=== PATIENT | male | born 1990 | race Two or more races ===

== ENCOUNTER 2021-06-01 03:42 | Inpatient (IN) | payer MEDICAID ==
[~2021-06-01] VITALS: Ht 175.3 cm; Wt 77.1 kg
[2021-06-01 04:42] LABS: Hematocrit 40.9 % (41.0-53.0); Hemoglobin 13.7 g/dL (13.5-17.5); Mean Corpuscular Hemoglobin 30.6 pg (28.0-32.0); Mean Corpuscular Hgb Conc. 33.6 g/dL (32.0-36.0); Red Cell Distribution Width 13.2 % (11.8-14.3); White Blood Cell 7.7 10^3/uL (4.4-10.8)
[2021-06-01 04:47] LABS: Basophils % (manual) 0 (0.0-2.0); Blast Cells 0; Metamyelocytes % 0; Myelocytes % 0; Promyelocytes % 0
[2021-06-01 04:54] LABS: Albumin 3.4 g/dL (3.4-5.0); Calcium 8.3 mg/dL (8.5-10.1); Potassium 3.8 mmol/L (3.5-5.1)
[2021-06-01 04:59] LABS: BUN/Creatinine Ratio 6.7; Bilirubin, Total 0.3 mg/dL (0.2-1.0); Total Protein 7.2 g/dL (6.4-8.2)
[2021-06-01 05:03] LABS: INR 1.04 (0.9-1.15); Partial Thromboplastin Time 28.2 sec (23.6-33.0)
[2021-06-01 05:40] LABS: Band Neutrophils % (manual) 3; Eosinophils % (manual) 29 (0-7); Lymphocytes % (manual) 8 (10.0-50.0); Monocytes % (manual) 8 (0-12); Reactive Lymphocytes 2
[2021-06-01 05:43] LABS: Urine Bacteria NONE SEEN /hpf (None Seen); Urine Blood Negative /uL (Negative); Urine Specific Gravity 1.018 (1.001-1.035); Urine WBC 2 /hpf (0 - 3)
[2021-06-01] MEDS ORDERED: ASPirin 325 MG TAB PO ONE (06:00)
[2021-06-01] MEDS ORDERED: DEXTROSE (50%) 50ML SYRG IV ONE ×2 (07:00→15:30)
[2021-06-01] MEDS ORDERED: ACETAMINOPHEN 325 MG TAB PO PRN (10:00)
[2021-06-01] MEDS ORDERED: D5W/SOD CHLO 0.9% 1,000 ML IV ONE (10:00)
[2021-06-01] MEDS ORDERED: NITROGLYCERIN 0.4 MG SL TAB SL PRN (10:00)
[2021-06-01] MEDS ORDERED: ONDANSETRON HCL 4 MG/2 ML VIAL IV PRN (10:00)
[2021-06-01] MEDS ORDERED: MORPHINE SULFATE INJECTION 2 MG/ML SYRG IV PRN (10:00)
[2021-06-01] MEDS ORDERED: DEXTROSE 50% SYRINGE 50 ML IV ONE (15:24)
[2021-06-01] MEDS: ACCU-CHEK COMFORT CURVE STRIP VI SCH (21:00)
[2021-06-01] MEDS ORDERED: DEXTROSE (50%) 50ML SYRG IV PRN (21:30)
[2021-06-01 22:00] VITALS: BP 134/76
[2021-06-01] MEDS: D5W 5% 1,000 ML IV SCH (22:00)
[2021-06-01] MEDS: ATORVASTATIN 20 MG TAB PO SCH (23:10)
[2021-06-02] MEDS: ACCU-CHEK COMFORT CURVE STRIP VI SCH ×6 (03:40→20:00)
[2021-06-02 05:00] VITALS: BP 118/70
[2021-06-02 09:00] VITALS: BP 100/54
[2021-06-02] MEDS: D5W 5% 1,000 ML IV SCH (10:50)
[2021-06-02] MEDS ORDERED: IOHEXOL 350 MG/ML 100ML IJ ONE (11:21)
[2021-06-02 11:33] LABS: BUN/Creatinine Ratio 8.1; Calcium 8.5 mg/dL (8.5-10.1)
[2021-06-02] MEDS: ASPirin 81 mg TAB PO SCH (12:50)
[2021-06-02 13:00] VITALS: BP 121/76
[2021-06-02] MEDS ORDERED: HEPARIN SODIUM (PORCINE) 5000 UNITS/ML 1ML VIAL IV ONE (14:15)
[2021-06-02 15:37] LABS: Hematocrit 44.7 % (41.0-53.0); Hemoglobin 14.6 g/dL (13.5-17.5); Mean Corpuscular Hemoglobin 29.7 pg (28.0-32.0); Mean Corpuscular Hgb Conc. 32.5 g/dL (32.0-36.0); Mean Corpuscular Volume 91.3 fL (80.0-100.0); Red Cell Distribution Width 13.6 % (11.8-14.3); White Blood Cell 9.5 10^3/uL (4.4-10.8)
[2021-06-02 15:48] LABS: Basophils % (manual) 0 (0.0-2.0); Blast Cells 0; Metamyelocytes % 0; Myelocytes % 0; Promyelocytes % 0; Reactive Lymphocytes 0
[2021-06-02 16:21] LABS: Band Neutrophils % (manual) 1; Eosinophils % (manual) 24 (0-7); Lymphocytes % (manual) 6 (10.0-50.0); Monocytes % (manual) 6 (0-12)
[2021-06-02 16:36] VITALS: BP 113/51
[2021-06-02] MEDS: HEPARIN DRIP/D5W 100UNITS/ML 250 ML IV SCH (17:47)
[2021-06-02 22:00] VITALS: BP 110/77
[2021-06-02] MEDS: ATORVASTATIN 20 MG TAB PO SCH (23:00)
[2021-06-03] MEDS: D5W 5% 1,000 ML IV SCH (00:10)
[2021-06-03] MEDS: ACCU-CHEK COMFORT CURVE STRIP VI SCH ×4 (01:00→12:00)
[2021-06-03 01:45] LABS: INR 1.09 (0.9-1.15); Partial Thromboplastin Time 69.4 sec (23.6-33.0)
[2021-06-03 05:00] VITALS: BP 123/62
[2021-06-03 08:11] LABS: Hematocrit 44.7 % (41.0-53.0); Hemoglobin 14.5 g/dL (13.5-17.5); Mean Corpuscular Hemoglobin 29.6 pg (28.0-32.0); Mean Corpuscular Hgb Conc. 32.4 g/dL (32.0-36.0); Mean Corpuscular Volume 91.3 fL (80.0-100.0); Red Cell Distribution Width 13.3 % (11.8-14.3); White Blood Cell 10.2 10^3/uL (4.4-10.8)
[2021-06-03 08:16] LABS: Band Neutrophils % (manual) 0; Basophils % (manual) 0 (0.0-2.0); Blast Cells 0; Metamyelocytes % 0; Myelocytes % 0; Promyelocytes % 0; Reactive Lymphocytes 0
[2021-06-03 08:23] LABS: Calcium 8.5 mg/dL (8.5-10.1)
[2021-06-03 08:27] LABS: BUN/Creatinine Ratio 10.1; Magnesium 2.1 mg/dL (1.6-2.6)
[2021-06-03 09:00] VITALS: BP 117/64
[2021-06-03 09:27] LABS: Eosinophils % (manual) 22 (0-7); Lymphocytes % (manual) 9 (10.0-50.0); Monocytes % (manual) 3 (0-12)
[2021-06-03] MEDS: HEPARIN DRIP/D5W 100UNITS/ML 250 ML IV SCH ×4 (09:37→19:58)
[2021-06-03] MEDS: ASPirin 81 mg TAB PO SCH (10:00)
[2021-06-03 12:25] LABS: INR 1.07 (0.9-1.15)
[2021-06-03 12:28] LABS: Partial Thromboplastin Time 71.7 sec (23.6-33.0)
[2021-06-03 13:00] VITALS: BP 112/72
[2021-06-03 17:00] VITALS: BP 105/68
[2021-06-03 18:40] LABS: INR 1.05 (0.9-1.15)
[2021-06-03 18:49] LABS: Partial Thromboplastin Time 81.1 sec (23.6-33.0)
[2021-06-03 22:00] VITALS: BP 107/66
[2021-06-03] MEDS: ATORVASTATIN 20 MG TAB PO SCH (22:00)
[2021-06-04 01:36] LABS: INR 1.07 (0.9-1.15); Partial Thromboplastin Time 65.7 sec (23.6-33.0)
[2021-06-04 05:00] VITALS: BP 108/69
[2021-06-04 07:41] LABS: INR 1.05 (0.9-1.15); Partial Thromboplastin Time 68.4 sec (23.6-33.0)
[2021-06-04 07:46] LABS: Cholesterol 116 mg/dL (< 200); HDL Cholesterol 45 mg/dL (40-59); LDL Cholesterol 60 mg/dL (< 100); Triglycerides 75 mg/dL (< 150)
[2021-06-04] MEDS: HEPARIN DRIP/D5W 100UNITS/ML 250 ML IV SCH (08:50)
[2021-06-04] MEDS: ASPirin 81 mg TAB PO SCH (08:50)
[2021-06-04 09:00] VITALS: BP 115/64
[2021-06-04 09:10] LABS: Hematocrit 45.1 % (41.0-53.0); Mean Corpuscular Hemoglobin 30.4 pg (28.0-32.0); Mean Corpuscular Hgb Conc. 33.2 g/dL (32.0-36.0); Mean Corpuscular Volume 91.4 fL (80.0-100.0); Red Blood Cells 4.93 10^6/uL (4.5-5.90); Red Cell Distribution Width 13.6 % (11.8-14.3); White Blood Cell 8.5 10^3/uL (4.4-10.8)
[2021-06-04 09:22] LABS: Basophils % (manual) 0 (0.0-2.0); Blast Cells 0; Metamyelocytes % 0; Myelocytes % 0; Promyelocytes % 0; Reactive Lymphocytes 0
[2021-06-04 10:14] LABS: Band Neutrophils % (manual) 1; Eosinophils % (manual) 18 (0-7); Lymphocytes % (manual) 6 (10.0-50.0); Monocytes % (manual) 17 (0-12)
[2021-06-04 13:00] VITALS: BP 115/72
[2021-06-04 17:00] VITALS: BP 115/72
[2021-06-04 21:19] LABS: INR 1.05 (0.9-1.15); Partial Thromboplastin Time 45.5 sec (23.6-33.0)
[2021-06-04] MEDS: ATORVASTATIN 20 MG TAB PO SCH (22:03)
[2021-06-04 22:22] VITALS: BP 111/81
[2021-06-05 02:57] LABS: INR 1.05 (0.9-1.15); Partial Thromboplastin Time 32.2 sec (23.6-33.0)
[2021-06-05] MEDS ORDERED: HEPARIN SODIUM (PORCINE) 5000 UNITS/ML 1ML VIAL IV ONE (03:30)
[2021-06-05 05:10] LABS: Hematocrit 47.6 % (41.0-53.0); Hemoglobin 15.3 g/dL (13.5-17.5); Mean Corpuscular Hemoglobin 29.9 pg (28.0-32.0); Mean Corpuscular Hgb Conc. 32.2 g/dL (32.0-36.0); Mean Corpuscular Volume 92.8 fL (80.0-100.0); Red Blood Cells 5.13 10^6/uL (4.5-5.90); Red Cell Distribution Width 13.7 % (11.8-14.3); White Blood Cell 6.1 10^3/uL (4.4-10.8)
[2021-06-05 05:18] LABS: Basophils % (manual) 0 (0.0-2.0); Blast Cells 0; Metamyelocytes % 0; Myelocytes % 0; Promyelocytes % 0; Reactive Lymphocytes 0
[2021-06-05 05:40] LABS: INR 1.14 (0.9-1.15)
[2021-06-05 05:47] LABS: Partial Thromboplastin Time > 139.0 sec (23.6-33.0)
[2021-06-05 05:55] VITALS: BP 116/76
[2021-06-05 07:07] LABS: Band Neutrophils % (manual) 6; Eosinophils % (manual) 25 (0-7); Lymphocytes % (manual) 11 (10.0-50.0); Monocytes % (manual) 8 (0-12)
[2021-06-05] MEDS: MORPHINE SULFATE INJECTION 2 MG/ML SYRG IV PRN ×2 (09:00→17:24)
[2021-06-05] MEDS: ASPirin 81 mg TAB PO SCH (09:58)
[2021-06-05] MEDS: HEPARIN DRIP/D5W 100UNITS/ML 250 ML IV SCH (11:23)
[2021-06-05 13:00] VITALS: BP 118/73
[2021-06-05 13:24] LABS: INR 1.11 (0.9-1.15); Partial Thromboplastin Time 50.7 sec (23.6-33.0)
[2021-06-05 17:00] VITALS: BP 118/88
[2021-06-05 20:13] LABS: INR 1.1 (0.9-1.15); Partial Thromboplastin Time 67.5 sec (23.6-33.0)
[2021-06-05 22:30] VITALS: BP 111/74
[2021-06-06 01:44] LABS: INR 1.1 (0.9-1.15)
[2021-06-06 02:31] LABS: Hematocrit 44.2 % (41.0-53.0); Hemoglobin 15.1 g/dL (13.5-17.5); Mean Corpuscular Hemoglobin 30.9 pg (28.0-32.0); Mean Corpuscular Hgb Conc. 34.1 g/dL (32.0-36.0); Mean Corpuscular Volume 90.6 fL (80.0-100.0); Red Blood Cells 4.88 10^6/uL (4.5-5.90); Red Cell Distribution Width 13.4 % (11.8-14.3); White Blood Cell 7.4 10^3/uL (4.4-10.8)
[2021-06-06 02:41] LABS: Basophils % (manual) 0 (0.0-2.0); Blast Cells 0; Metamyelocytes % 0; Myelocytes % 0; Promyelocytes % 0; Reactive Lymphocytes 0
[2021-06-06 04:19] LABS: Band Neutrophils % (manual) 1; Eosinophils % (manual) 33 (0-7); Lymphocytes % (manual) 14 (10.0-50.0); Monocytes % (manual) 7 (0-12)
[2021-06-06 05:33] VITALS: BP 112/74
[2021-06-06] MEDS: HEPARIN DRIP/D5W 100UNITS/ML 250 ML IV SCH (09:45)
[2021-06-06] MEDS: ASPirin 81 mg TAB PO SCH (09:55)
== END 2021-06-06 10:20 | disposition home health service (06) | DRG 45 ==
LOC: ER 03:42 → TELE 09:52 → TELE-WESTW 19:20
PROVIDERS: ADMIT Internal Medicine; ATTEND Internal Medicine
DX: I63.49 Cerebral infarction due to embolism of other cerebral artery (principal); D68.59 Other primary thrombophilia; I82.C12 Acute embolism and thrombosis of left internal jugular vein; G81.91 Hemiplegia, unspecified affecting right dominant side; R29.810 Facial weakness; E16.2 Hypoglycemia, unspecified; F84.0 Autistic disorder; L30.9 Dermatitis, unspecified; W18.39XA Other fall on same level, initial encounter; Z20.822 Contact with and (suspected) exposure to COVID-19; Z79.01 Long term (current) use of anticoagulants; Z82.3 Family history of stroke; Z83.3 Family history of diabetes mellitus; Z82.49 Family history of ischemic heart disease and other diseases of the circulatory system; Y93.89 Activity, other specified; Y92.89 Other specified places as the place of occurrence of the external cause; Y99.8 Other external cause status; Z53.20 Procedure and treatment not carried out because of patient's decision for unspecified reasons
CPT/HCPCS: 36415; 70450; 70460; 70491; 70551; 71045; 72125; 73020; 80048; 80053; 80061; 81001; 81241; 82962; 83036; 83605; 83735; 85007; 85027; 85302; 85305; 85306; 85610; 85613; 85670; 85705; 85730; 85732; 86850; 86900; 86901; 87426; 92610; 93306; 93886; 96361; 96374; 96376; 97116; 97163; G0378

== ENCOUNTER 2021-07-28 18:31 | Emergency (ER) | payer MEDICAID ==
[~2021-07-28] VITALS: Ht 175.3 cm; Wt 68.0 kg
[2021-07-28 19:47] LABS: Hematocrit 41.7 % (41.0-53.0); Hemoglobin 13.7 g/dL (13.5-17.5); Mean Corpuscular Hemoglobin 30.1 pg (28.0-32.0); Mean Corpuscular Hgb Conc. 32.8 g/dL (32.0-36.0); Mean Corpuscular Volume 91.8 fL (80.0-100.0); Red Blood Cells 4.54 10^6/uL (4.5-5.90); Red Cell Distribution Width 13.3 % (11.8-14.3); White Blood Cell 7.9 10^3/uL (4.4-10.8)
[2021-07-28 19:52] LABS: Band Neutrophils % (manual) 0; Blast Cells 0; Metamyelocytes % 0; Myelocytes % 0; Promyelocytes % 0; Reactive Lymphocytes 0
[2021-07-28 20:19] LABS: Albumin 3.3 g/dL (3.4-5.0); Calcium 8.3 mg/dL (8.5-10.1); Magnesium 2.2 mg/dL (1.6-2.6); Potassium 4.2 mmol/L (3.5-5.1)
[2021-07-28 20:21] LABS: BUN/Creatinine Ratio 8.2
[2021-07-28 20:24] LABS: Bilirubin, Total 0.4 mg/dL (0.2-1.0); Total Protein 7.2 g/dL (6.4-8.2)
[2021-07-28 21:03] LABS: Basophils % (manual) 0 (0.0-2.0); Eosinophils % (manual) 23 (0-7); Lymphocytes % (manual) 5 (10.0-50.0); Monocytes % (manual) 4 (0-12)
[2021-07-29 01:54] LABS: Urine Bacteria FEW /hpf (None Seen); Urine Blood Negative /uL (Negative); Urine Mucus FEW (None Seen); Urine Specific Gravity 1.038 (1.001-1.035); Urine WBC 12 /hpf (0 - 3)
[2021-07-29 02:06] LABS: Alcohol, Urine < 3.0 mg/dL (0-10); Amphetamine Screen, Urine NEGATIVE (NEGATIVE); Barbiturate Scree,Urine NEGATIVE (NEGATIVE); Benzodiazephine Screen, Urine NEGATIVE (NEGATIVE); Cannabinoid Screen, Urine NEGATIVE (NEGATIVE); Cocaine Screen, Urine NEGATIVE (NEGATIVE); Opiate Scree,Urine NEGATIVE (NEGATIVE); Phencyclidine Screen, Urine NEGATIVE (NEGATIVE)
[2021-07-29 04:50] VITALS: BP 115/79
== END 2021-07-29 04:51 | disposition home or self-care (01) ==
LOC: ER 18:32
DX: R20.2 Paresthesia of skin (principal); R53.1 Weakness; Z86.73 Personal history of transient ischemic attack (TIA), and cerebral infarction without residual deficits
CPT/HCPCS: 36415; 70450; 80053; 80307; 81001; 83735; 85007; 85027

== ENCOUNTER 2021-09-30 14:08 | Emergency (ER) | payer MEDICAID ==
[~2021-09-30] VITALS: Ht 172.7 cm; Wt 72.6 kg
[2021-09-30 18:59] VITALS: BP 118/73
[2021-09-30] MEDS ORDERED: PRED20TA2 PO ×6 (19:01→19:18)
== END 2021-09-30 19:49 | disposition home or self-care (01) ==
LOC: ER 14:08
DX: L30.9 Dermatitis, unspecified (principal); L20.9 Atopic dermatitis, unspecified; Z86.73 Personal history of transient ischemic attack (TIA), and cerebral infarction without residual deficits; Z79.899 Other long term (current) drug therapy

== ENCOUNTER 2021-10-19 16:14 | Emergency (ER) | payer MEDICAID ==
[~2021-10-19] VITALS: Ht 172.7 cm; Wt 68.9 kg
[~2021-10-19 16:14] MED LIST: PRED20TA2 PO
[2021-10-19 17:15] VITALS: BP 119/92
== END 2021-10-19 18:01 | disposition home or self-care (01) ==
LOC: ER 16:18
DX: L30.9 Dermatitis, unspecified (principal); Z86.73 Personal history of transient ischemic attack (TIA), and cerebral infarction without residual deficits; Z79.899 Other long term (current) drug therapy

== ENCOUNTER 2021-11-01 13:11 | Emergency (ER) | payer MEDICAID ==
[~2021-11-01] VITALS: Ht 172.7 cm; Wt 68.0 kg
[2021-11-01 13:27] VITALS: BP 143/82
[2021-11-01] MEDS ORDERED: CEPH500C PO (13:45)
[2021-11-01] MEDS ORDERED: PRED20TA2 PO (13:45)
== END 2021-11-01 14:20 | disposition home or self-care (01) ==
LOC: ER 13:11
DX: L30.9 Dermatitis, unspecified (principal); Z86.73 Personal history of transient ischemic attack (TIA), and cerebral infarction without residual deficits

== ENCOUNTER 2021-11-02 17:43 | Emergency (ER) | payer MEDICAID ==
[~2021-11-02] VITALS: Ht 172.7 cm; Wt 68.0 kg
[~2021-11-02 17:43] MED LIST changes: +CEPH500C PO
[2021-11-02 19:43] VITALS: BP 128/91
[2021-11-02] MEDS ORDERED: methylPREDNISolone SOD SUCC 125 MG/2 ML VL IV ONE (20:15)
[2021-11-02] MEDS ORDERED: KETOROLAC TROMETH 30 MG/ML 1ML VIAL IV ONE (20:15)
== END 2021-11-02 21:37 | disposition home or self-care (01) ==
LOC: ER 17:43
DX: L30.9 Dermatitis, unspecified (principal); Z86.73 Personal history of transient ischemic attack (TIA), and cerebral infarction without residual deficits
CPT/HCPCS: 96374; 99283; J1885; J2930

== ENCOUNTER 2021-11-12 17:36 | Emergency (ER) | payer MEDICAID ==
[~2021-11-12] VITALS: Ht 172.7 cm; Wt 66.7 kg
[2021-11-12] MEDS ORDERED: methylPREDNISolone SOD SUCC 125 MG/2 ML VL IV ONE (20:30)
[2021-11-12] MEDS ORDERED: SODIUM CHLORIDE 0.9% 1,000 ML IV ONE (20:30)
[2021-11-12 22:32] LABS: Basophils # (auto) 0 10 ^3/uL (0-0.2); Basophils % (auto) 0.5 % (0.0-2.0); Eosinophils # (auto) 0.9 10 ^3/uL (0-0.8); Eosinophils % (auto) 9.5 % (0.0-7.0); Hematocrit 47.3 % (41.0-53.0); Hemoglobin 15.7 g/dL (13.5-17.5); Lymphocytes # (auto) 0.8 10 ^3/uL (0.4-5.4); Lymphocytes % (auto) 7.8 % (10.0-50.0); Mean Corpuscular Hemoglobin 30.3 pg (28.0-32.0); Mean Corpuscular Hgb Conc. 33.3 g/dL (32.0-36.0); Mean Corpuscular Volume 90.9 fL (80.0-100.0); Monocytes # (auto) 0.9 10 ^3/uL (0-1.3); Neutrophils # (auto) 7.3 10 ^3/uL (1.6-8.6); Neutrophils % (auto) 73.2 % (37.0-80.0); Red Cell Distribution Width 13.9 % (11.8-14.3); White Blood Cell 9.9 10^3/uL (4.4-10.8)
[2021-11-12 22:47] LABS: Albumin 3.2 g/dL (3.4-5.0); BUN/Creatinine Ratio 11.3; Calcium 8.6 mg/dL (8.5-10.1); Magnesium 2.2 mg/dL (1.6-2.6); Potassium 3.8 mmol/L (3.5-5.1)
[2021-11-12 22:50] LABS: Bilirubin, Total 0.3 mg/dL (0.2-1.0); Total Protein 6.6 g/dL (6.4-8.2)
[2021-11-13] MEDS ORDERED: PRED20TA2 PO (00:50)
[2021-11-13 01:37] VITALS: BP 119/76
== END 2021-11-13 01:40 | disposition home or self-care (01) ==
LOC: ER 17:36
DX: L20.9 Atopic dermatitis, unspecified (principal); Z86.73 Personal history of transient ischemic attack (TIA), and cerebral infarction without residual deficits
CPT/HCPCS: 36415; 80053; 83735; 85025; 93005; 96361; 96374; 99284; J2930; J7030

== ENCOUNTER 2021-11-30 15:29 | Emergency (ER) | payer MEDICAID ==
[~2021-11-30] VITALS: Ht 172.7 cm; Wt 68.0 kg
[2021-11-30 16:20] VITALS: BP 130/80
== END 2021-11-30 16:51 | disposition home or self-care (01) ==
LOC: ER 15:29
DX: L30.9 Dermatitis, unspecified (principal); Z76.0 Encounter for issue of repeat prescription; Z86.73 Personal history of transient ischemic attack (TIA), and cerebral infarction without residual deficits; Z79.899 Other long term (current) drug therapy

== ENCOUNTER 2022-06-03 15:11 | Emergency (ER) | payer MEDICAID ==
[~2022-06-03] VITALS: Ht 172.7 cm; Wt 67.0 kg
[2022-06-03] MEDS ORDERED: predniSONE 20 MG TAB PO ONE (15:30)
[2022-06-03] MEDS ORDERED: DexAMETHasone SOD PHOS 10MG/1ML VIAL INJ IM ONE (16:15)
[2022-06-03 16:30] VITALS: BP 121/69
[2022-06-03] MEDS ORDERED: CIPR-173 PO (16:30)
== END 2022-06-03 16:44 | disposition home or self-care (01) ==
LOC: ER 15:11
DX: H60.93 Unspecified otitis externa, bilateral (principal); Z86.73 Personal history of transient ischemic attack (TIA), and cerebral infarction without residual deficits
CPT/HCPCS: 96372; 99283; J1100

== ENCOUNTER 2022-09-05 16:07 | Emergency (ER) | payer MEDICAID ==
[~2022-09-05] VITALS: Ht 172.7 cm; Wt 70.2 kg
[~2022-09-05 16:07] MED LIST changes: +CIPR-173 PO
[2022-09-05 16:27] VITALS: BP 114/74
[2022-09-05] MEDS ORDERED: CEPH-510 PO (16:45)
[2022-09-05] MEDS ORDERED: PRED20TA2 PO (16:45)
== END 2022-09-05 16:57 | disposition home or self-care (01) ==
LOC: ER 16:07
DX: L30.9 Dermatitis, unspecified (principal); F12.10 Cannabis abuse, uncomplicated; Z76.0 Encounter for issue of repeat prescription; Z86.73 Personal history of transient ischemic attack (TIA), and cerebral infarction without residual deficits

== ENCOUNTER 2022-10-24 13:53 | Emergency (ER) | payer MEDICAID ==
[~2022-10-24] VITALS: Ht 170.2 cm; Wt 64.0 kg
[~2022-10-24 13:53] MED LIST changes: +CEPH-510 PO
[2022-10-24 14:00] VITALS: BP 115/52
[2022-10-24] MEDS ORDERED: PRED20TA2 PO ×2 (15:30→15:34)
== END 2022-10-24 15:45 | disposition home or self-care (01) ==
LOC: ER 13:53
DX: L20.9 Atopic dermatitis, unspecified (principal); Z86.73 Personal history of transient ischemic attack (TIA), and cerebral infarction without residual deficits; Z79.2 Long term (current) use of antibiotics; Z79.899 Other long term (current) drug therapy

== ENCOUNTER 2022-11-18 07:39 | Emergency (ER) | payer MEDICAID ==
[~2022-11-18] VITALS: Ht 172.7 cm; Wt 68.7 kg
[2022-11-18 08:29] VITALS: BP 126/93
[2022-11-18] MEDS ORDERED: HYD1TP TOP (09:12)
== END 2022-11-18 09:20 | disposition home or self-care (01) ==
LOC: ER 07:39
DX: L20.9 Atopic dermatitis, unspecified (principal); F12.90 Cannabis use, unspecified, uncomplicated; Z79.899 Other long term (current) drug therapy; Z86.73 Personal history of transient ischemic attack (TIA), and cerebral infarction without residual deficits

== ENCOUNTER 2023-01-24 16:23 | Emergency (ER) | payer MEDICAID ==
[~2023-01-24] VITALS: Ht 172.7 cm; Wt 62.2 kg
[~2023-01-24 16:23] MED LIST changes: +HYD1TP TOP
[2023-01-24 17:11] VITALS: BP 106/72
[2023-01-24] MEDS ORDERED: CEPH-510 PO (17:54)
[2023-01-24] MEDS ORDERED: TRIA0.02 TOP (17:54)
[2023-01-24] MEDS ORDERED: METH4PAK PO (17:54)
== END 2023-01-24 18:14 | disposition home or self-care (01) ==
LOC: ER 16:23
DX: L20.89 Other atopic dermatitis (principal); L30.9 Dermatitis, unspecified

== ENCOUNTER 2023-02-12 13:50 | Emergency (ER) | payer MEDICAID ==
[~2023-02-12] VITALS: Ht 172.7 cm; Wt 67.0 kg
[~2023-02-12 13:50] MED LIST changes: +METH4PAK PO; +TRIA0.02 TOP
[2023-02-12 15:10] VITALS: BP 122/80
[2023-02-12] MEDS ORDERED: CEPH-510 PO (15:37)
[2023-02-12] MEDS ORDERED: PRED20TA2 PO (15:37)
== END 2023-02-12 15:49 | disposition home or self-care (01) ==
LOC: ER 13:50
DX: L20.9 Atopic dermatitis, unspecified (principal); F12.10 Cannabis abuse, uncomplicated; Z86.73 Personal history of transient ischemic attack (TIA), and cerebral infarction without residual deficits; Z88.6 Allergy status to analgesic agent; Z88.1 Allergy status to other antibiotic agents; Z76.0 Encounter for issue of repeat prescription

== ENCOUNTER 2023-03-22 10:27 | Emergency (ER) | payer MEDICAID ==
[~2023-03-22] VITALS: Ht 172.7 cm; Wt 68.1 kg
[2023-03-22 10:46] VITALS: BP 117/84
[2023-03-22] MEDS ORDERED: CEPH500C PO (11:15)
== END 2023-03-22 11:25 | disposition home or self-care (01) ==
LOC: ER 10:27
DX: L30.9 Dermatitis, unspecified (principal); Z76.0 Encounter for issue of repeat prescription; F12.10 Cannabis abuse, uncomplicated; Z86.73 Personal history of transient ischemic attack (TIA), and cerebral infarction without residual deficits

== ENCOUNTER 2023-05-01 15:22 | Emergency (ER) | payer MEDICAID | END 2023-05-01 16:05 | disposition left against medical advice (07) | LOC: ER 15:22 | DX: Z48.00 Encounter for change or removal of nonsurgical wound dressing (principal); Z53.21 Procedure and treatment not carried out due to patient leaving prior to being seen by health care provider ==